=== PATIENT | male | born 1990 | race Two or more races ===

== ENCOUNTER 2024-06-26 09:29 | Inpatient (IN) | payer SELFPAY ==
[2024-06-26] VITALS (12 sets, daily range): BP systolic 127–164; BP diastolic 74–104; PULSE 74–110; RESP 14–18; TEMP 36.6–37.6; O2SAT 96–100; BMI 31.7
--- NOTE | 2024-06-26 10:43 | CT_ITS ---
FINAL REPORT CLINICAL HISTORY: soft tissue abscess of t4 area COMPARISON: None FINDINGS: CT THORACIC SPINE WITH CONTRAST TECHNIQUE: Thin section axial CT with sagittal and coronal reconstructions after the administration of IV contrast. This study was performed with techniques to keep radiation doses as low as reasonably achievable, (ALARA). Individualized dose reduction techniques using automated exposure control or adjustment of mA and/or kV according to the patient's size were employed. FINDINGS: There is no fracture. No bony destruction is seen to localize area of osteomyelitis. No gross epidural abscess is identified. There is significant focal edema in the subcutaneous tissues overlying the upper thoracic vertebra with an appearance compatible with phlegmon measuring up to 7 cm. Developing abscess is questioned. There is no loculated fluid collection or gas seen in the soft tissues. IMPRESSION: Significant inflammatory changes subcutaneous tissues overlying the upper thoracic spine with an appearance compatible with phlegmon/developing abscess. Reviewed, Interpreted and Dictated by Pina Medrano MD Transcribed by Komal Villanueva Authenticated and [facility]
--- NOTE | 2024-06-26 10:47 | CT_ITS ---
FINAL REPORT TECHNIQUE: After the administration of intravenous contrast, axial images through the chest were performed by computed tomography. This study was performed with techniques to keep radiation doses as low as reasonably achievable, (ALARA). Individualized dose reduction techniques using automated exposure control or adjustment of mA and/or kV according to the patient's size were employed. CLINICAL HISTORY: t-spine area abscess to of thoracic spine COMPARISON: None FINDINGS: The lungs are clear. There is no intrathoracic adenopathy. No pleural effusions are identified. There is mild right axillary adenopathy measuring up to 23 mm. Inflammatory changes are seen in the subcutaneous tissues overlying the upper thoracic spine. There is minimal edematous change in the right upper chest wall musculature. IMPRESSION: No acute intrathoracic abnormality. Inflammatory changes compatible phlegmon/developing abscess in the subcutaneous tissues overlying the upper thoracic spine. Reviewed, Interpreted and Dictated by Pina Medrano MD Transcribed by Komal Villanueva Authenticated and [facility]
--- NOTE | 2024-06-26 10:51 | ED_ITS ---
Discharge Plan Disposition Patient Disposition: Admitted Condition: Fair Clinical Impressions Clinical Impression: Cellulitis Discharge ED Provider: Mat Talbot General Adult HPI General Chief complaint: Skin/Abscess/Foreign Body Stated complaint: Skin abcess/infection on upper back Time Seen by Provider: 06/26/24 10:33 Mode of Arrival: Ambulatory Source of Information: Patient Limitations: Language Barrier Description of Symptoms (Recalled from ER Triage Doc. by RN): Pt. presents to ED with complaints of abscess on his upper, middle back. He states it started as a pimple or ingrown hair about 3 weeks ago and started becoming more infected and hurting worse last Wednesday, 06/20. He went to the doctor on 06/23 and they lanced and drained the abscess and started him on antibiotics. He states it has gotten much worse and is concerned about the increased infection. 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 History of Present Illness HPI narrative: 34-year-old [place] Leonean-speaking male presents to the ER for concerns of an abscess on his upper mid back. Reportedly he had a pimple or ingrown hair approximately 3 weeks ago that started getting worse. 6 days ago he started having fevers and worsening pain. 3 days ago he was taken to the doctor where they reportedly drained the abscess and started him on antibiotics however his pain in the area that is impacting continues to worsen. He is also still having fevers. Patient denies any known drug allergies, no chronic health problems that he knows of, he denies illicit drug use but admits to occasional alcohol use. No known injury to the area. Patient showed me photos of the evolution of his wound, it is definitely continuing to progress and worsen with expanding area of erythema and induration compared to even just a few days ago despite outpatient antibiotics of Bactrim and cephalexin. Related Data Home Medications ?Medication ?Instructions ?Recorded ?Confirmed cephalexin 500 mg tablet 500 mg PO BID 06/26/24 06/26/24 ibuprofen 600 mg tablet 600 mg PO Q8HP PRN Mild Pain 06/26/24 06/26/24 (Scale Score 1-4) sulfamethoxazole 800 1 tab PO BID 06/26/24 06/26/24 mg-trimethoprim 160 mg tablet (Bactrim DS) Allergies Allergy/AdvReac Type Severity Reaction Status Date / Time No Known Allergies Allergy Verified 06/26/24 14:19 PFSH PFSH Disclaimer: The information contained in this section may have been updated after the patient was seen, as this information can be updated by other users. Medical History (Updated 06/26/24 @ 14:19 by Michelle Kruse) Abscess Social History (System 06/26/24 @ 14:19 by Michelle Kruse) Smoking Status: Never smoker alcohol intake: current current occupational status: employed Travel in the last 8 weeks: Outside the [facility] Have you lived/traveled outside US in past 30 days?: No Contact w/someone who lives/traveled outside US past 30 days?: No Exposure to someone with infectious disease in past 14 days?: No Do you have a fever (greater than 100.4 F or 38 C)?: No Have you tested positive for COVID-19: No Exposed to someone with COVID-19 in past 14 days?: No Do you have a sore throat?: No Do you have a cough?: No Do you have any weakness?: No Are you experiencing any nausea/vomitting?: No Do you have any diarrhea?: No Are you experiencing any unusual bleeding?: No Do you have any muscle aches/pain?: No Do you have any abdominal pain?: No Are you experiencing loss of taste or smell?: No ROS Obtained: Yes Systems reviewed as appropriate & no additional complaints except as documented Per HPI Physical Exam General General appearance: alert and in no apparent distress Head Head exam: atraumatic and normocephalic Eye Eye exam: Present PERRL and EOMI ENT ENT exam: Present mucous membranes moist Neck Neck exam: Present normal inspection and full ROM Chest Chest inspection: Present symmetric chest wall rise Respiratory Respiratory exam: Present normal lung sounds bilaterally; Absent respiratory distress, wheezes or stridor Cardiovascular Cardiovascular exam: Present regular rate and normal rhythm Abdominal Exam Abdominal exam: Present soft; Absent distention or tenderness Extremities Exam Extremities exam: Present full ROM Back Exam Back exam: Present tenderness (Tenderness of the area surrounding the wound but no other tenderness, no vertebral tenderness, range of motion full) Neurological Exam Neurological exam: Present alert and oriented X3; Absent motor sensory deficit Psychiatric Psychiatric exam: Present normal affect and normal mood Skin Skin exam: Present warm, dry and other (Erythematous, indurated area 12 cm in diameter, the central area appears to be over the T4 region, the center of the wound is open and draining purulent material, there are multiple other smaller open areas on the wound also draining purulent material, the area is not fluctuant) Medical Decision Making Medical Records Screening: Per USPSTF and CDC recommendations, given the prevalence of disease in our region, it is our hospital?s policy to screen for HIV and viral Hepatitis for all patients aged 18 and over and those with ongoing risk factors. Severo Inquiry Pt receiving controlled substance: No Vital Signs: 06/26/24 09:57 06/26/24 10:30 06/26/24 11:00 Temperature 98.2 F Temperature Source Oral Pulse Rate 100 H 102 H Pulse Rate [Right Brachial] 110 H Respiratory Rate 16 Blood Pressure 130/85 136/95 H Blood Pressure [Right Arm] 164/104 H Blood Pressure Mean [Right Arm] 124 Blood Pressure Source Blood Pressure Source [Right Arm] Automatic Cuff Blood Pressure Position Blood Pressure Position [Right Arm] Sitting 02 Sat by Pulse Oximetry 99 98 96 Oxygen Delivery Method Room Air Room Air Room Air 06/26/24 11:29 06/26/24 12:30 06/26/24 13:30 Temperature Temperature Source Pulse Rate 96 H 80 74 Pulse Rate [Right Brachial] Respiratory Rate 18 16 Blood Pressure 127/87 132/88 141/82 H Blood Pressure [Right Arm] Blood Pressure Mean [Right Arm] Blood Pressure Source Automatic Cuff Automatic Cuff Blood Pressure Source [Right Arm] Blood Pressure Position Sitting Sitting Blood Pressure Position [Right Arm] 02 Sat by Pulse Oximetry 98 99 97 Oxygen Delivery Method Room Air Room Air Room Air 06/26/24 13:50 06/26/24 14:00 06/26/24 14:31 Temperature Temperature Source Pulse Rate 86 82 82 Pulse Rate [Right Brachial] Respiratory Rate Blood Pressure 147/91 H 155/81 H 140/84 Blood Pressure [Right Arm] Blood Pressure Mean [Right Arm] Blood Pressure Source Blood Pressure Source [Right Arm] Blood Pressure Position Blood Pressure Position [Right Arm] 02 Sat by Pulse Oximetry 100 99 99 Oxygen Delivery Method Room Air Room Air Room Air Lab Data Lab Results 06/26/24 09:56: WBC 8.0, RBC 5.04, Hgb 14.2, Hct 42.5, MCV 84.3, MCH 28.2, MCHC 33.4, RDW 12.7, Plt Count 273, MPV 10.8 H, Neut % (Auto) 75.5, Lymph % (Auto) 9.0 L, Beaver % (Auto) 11.5 H, Eos % (Auto) 2.8, Baso % (Auto) 0.4, Neut # (Auto) 6.0, Lymph # (Auto) 0.7, Beaver # (Auto) 0.9, Eos # (Auto) 0.2, Baso # (Auto) 0.0, PT 10.4, INR 0.92, Sodium 134 L, Potassium 4.4, Chloride 101, Carbon Dioxide 25, Anion Gap 12.4, BUN 15, Creatinine 0.70, Estimated Creat Clear 223, Estimated GFR 129, Est GFR ( Amer) 156, Glucose 325 H, Calcium 9.1, Total Bilirubin 0.6, AST 40, ALT 39, Alkaline Phosphatase 117, Total Protein 7.8, Albumin 3.7, G lobulin 4.1 H, Albumin/Globulin Ratio 0.9 L, HIV Ag/Ab Combo Qual Negative 06/26/24 09:56 06/26/24 09:56 Orders (Tests/Meds): ED MEDICATIONS Generic Name Dose Route Start Last Admin Trade Name Freq PRN Reason Stop Dose Admin Sodium Chloride 10 ml 06/26/24 11:48 06/26/24 11:52 Sodium Chloride 0.9% 10ml Syr (Rad Only) IV 07/26/24 11:47 10 ml NEEDED PRN Administration Maintain IV Site Discontinued Medications Generic Name Dose Route Start Last Admin Trade Name Freq PRN Reason Stop Dose Admin Lactated Ringer's 1,000 mls @ 999 mls/hr 06/26/24 10:44 06/26/24 11:08 Lactated Ringer's 1000 Ml Bag IV 06/26/24 11:44 999 mls/hr .Q1H1M ONE Administration Vancomycin HCl 2,000 mg/ 250 mls @ 125 mls/hr 06/26/24 11:00 06/26/24 11:07 Sodium Chloride IV 06/26/24 12:59 125 mls/hr ONCE ONE Administration Iopamidol 75 ml 06/26/24 11:48 06/26/24 11:52 Iopamidol-370 (76%);100ml Bottle IV 06/26/24 11:49 75 ml ONCE ONE Administration Miscellaneous 1 each 06/26/24 10:45 06/26/24 12:17 Vancomycin Consult Request NOTAPPLIC 07/26/24 10:44 1 each CON[facility]ULT [facility] Administration ORDERS Category Date Time Status CT chest w con Stat Cat Scan 06/26/24 10:[address] thoracic spine w con Stat Cat Scan 06/26/24 10:43 Taken CMP [Comprehensive Metabolic Panel] Stat Lab 06/26/24 09:56 Completed Complete Blood Count Auto Diff Stat Lab 06/26/24 09:56 Completed HIV Combo Stat Lab 06/26/24 09:56 Completed Hemoglobin A1C Stat Lab 06/26/24 09:56 Received Hep C Ab with Reflex to RNA Stat Lab 06/26/24 09:56 Received PT INR [Prothrombin Time INR] Stat Lab 06/26/24 09:56 Completed Wound Culture and Gram Stain Stat Micro 06/26/24 10:35 Received Medical Decision Narrative: In summary, this 34-year-old [place]an-speaking male presents to the emergency department today with abscess in the mid upper back. On initial evaluation patient is hemodynamically stable, though he is borderline tachycardic, normotensive, afebrile, large area of induration with purulent drainage and a central 1 cm diameter defect with purulence draining. Differential diagnosis includes but is not limited to abscess, cellulitis, I do have concerns for possible deeper space infection, electrolyte abnormality, possible sepsis, on further discussion with the patient he reports he was told he may be a diabetic but has never followed up about that which increases my concern for potential development of severe or even necrotizing infection though his slow progression of symptoms over the last 3 weeks decreases suspicion for necrotizing infection. Based on these concerns, I ordered serum labs, CT imaging. Patient received IV fluids, vancomycin for initial treatment and management of infection. Wound culture collected by me. Labs are notable for no leukocytosis however this could be falsely suppressed because patient has been on oral antibiotics for a few days. Nonactionable CMP however it is notable for hyperglycemia consistent with patient's remarks about possibly being a diabetic. A1c added to workup CT personally interpreted of the thoracic spine and chest demonstrates obvious area of infection but no apparent fluid collection, see radiology read for final interpretation. I do not appreciate findings of necrotizing infection. I discussed this case with the hospitalist, patient continues to be stable however he is obviously failing outpatient therapy. After reviewing the case and evaluating the patient, hospitalist recommended surgery consult. I discussed this case with Dr. Sanchez, after reviewing the wound, he recommended keeping the patient n.p.o. and agrees with the patient being inpatient. He states this afternoon he may decide to take the patient to the OR however he is not yet sure of this. Patient accepted for inpatient management by the hospitalist. Critical Care Critical Care Time Critical Care Time: No
[2024-06-26 10:53] LABS: Hematocrit 42.5 % (42.0-52.0); Hemoglobin 14.2 g/dL (14.1-18.0); Mean Corpuscular HGB Conc 33.4 g/dL (31.8-35.4); Mean Corpuscular Hemoglobin 28.2 pg (27.0-31.2); Mean Corpuscular Volume 84.3 fl (80-94); Mean Platelet Volume 10.8 fl (7.4-10.4); Neutrophils % 75.5 % (37.0-80.0); Platelet Count 273 K/mm3 (142-424); Red Blood Count 5.04 M/mm3 (4.60-6.20); Red Cell Distribution Width 12.7 % (11.5-17.5)
[2024-06-26 10:54] LABS: Basophils % 0.4 % (0.1-2.0); Eosinophils # 0.2 K/mm3 (0.0-0.4); Eosinophils % 2.8 % (0.1-12.0); Lymphocytes # 0.7 K/mm3 (0.7-4.5); Monocytes # 0.9 K/mm3 (0.1-1.0); Monocytes % 11.5 % (1.7-9.3)
[2024-06-26 11:05] LABS: INR 0.92 (0.9-1.1); Prothrombin Time 10.4 seconds (10.1-12.5)
[2024-06-26 11:07] LABS: Potassium 4.4 mmoL/L (3.5-5.1)
[2024-06-26] MEDS: VANCOMYCIN HCL 2,000 MG in 0.9 % SODIUM CHLORIDE 250 ML 125 MG IV (11:07)
[2024-06-26] MEDS: LACTATED RINGERS 1000ML 1,000 ML 999 ML IV (11:08)
[2024-06-26 11:10] LABS: Alanine Aminotransferase 39 U/L (12-78); Albumin Level 3.7 g/dl (3.5-5.0); Albumin/Globulin Ratio 0.9 (1.1-1.8); Alkaline Phosphatase 117 U/L (38-126); Anion Gap 12.4 mEq/L (5-15); Aspartate Amino Transferase 40 U/L (17-59); Bilirubin,Total 0.6 mg/dl (0.2-1.3); Blood Urea Nitrogen 15 mg/dl (9-20); Calcium 9.1 mg/dl (8.4-10.2); Carbon Dioxide 25 mmol/L (22.0-30.0); Chloride 101 mmol/L (98-107); Creatinine Clearance Estimated 223 mL/min (50-200); Estimated Glomerular Filt Rate 129 ml/min (>60); GFR (African American) 156 ML/MIN (>60); Globulin 4.1 g/dL (1.3-3.2); Glucose 325 mg/dl (74-100); Sodium 134 mmol/L (136-145); Total Protein,Serum 7.8 g/dl (6.3-8.2)
[2024-06-26] MEDS: IOPAMIDOL-370 (76%);100ML BOTTLE 75 ML IV (11:52)
[2024-06-26] MEDS: SODIUM CHLORIDE 0.9% 10ML SYR (RAD ONLY) 10 ML IV (11:52)
[2024-06-26] MEDS: VANCOMYCIN CONSULT REQUEST 1 EACH NOTAPPLIC ×2 (12:17→20:24)
[2024-06-26 12:36] LABS: HIV Combo NEGATIVE (Negative)
--- NOTE | 2024-06-26 13:50 | PC.NURSE ---
paged dr galicia turkey boner for er
--- NOTE | 2024-06-26 13:53 | PC.NURSE ---
adrian guajardo speaking to dr galicia
--- NOTE | 2024-06-26 14:31 | HMH.PHAINT1 ---
Pharmacy Intervention Comments: MEDICATION RECONCILIATION COMPLETED ON PATIENT USING EXTERNAL FILL HISTORY FROM PHARMACY. -YOUNG VALENCIA, ANICETOD
[2024-06-26 15:11] LABS: Hemoglobin A1C 11.3 % (4.0-6.0)
--- NOTE | 2024-06-26 16:06 | P.CONS_ITS ---
History of Present Illness *Admission Date: 06/26/24 *Reason for visit:: Abscess *History of present illness: Patient is a 34-year-old Persian-speaking male who presented to the emergency department with a 3-week history of abscess on the mid thoracic back area. Started out small possibly has a pimple or ingrown hair. It had progressed and about 6 days ago he began to develop fevers and increasing pain. He was seen by a healthcare provider who reportedly drained the area and started him on some oral antibiotics. However the area has continued to progressively worsen with increasing swelling and redness despite oral antibiotics. His workup included a CT scan which revealed inflammatory changes in the upper thoracic region compatible with phlegmon/developing abscess. ER physician had conversation with hospitalist as well as surgery. It was felt the best plan of action would be admission for initiation of IV antibiotics and serum glucose control for possible incision and drainage and debridement. Patient likely does have undiagnosed diabetes with glucose on presentation of 325 with a hemoglobin A1c of 11.3. [facility] Disclaimer: The information contained in this section may have been updated after the patient was seen, as this information can be updated by other users. Medical History (Updated 06/26/24 @ 16:45 by Emir Sanchez MD) Abscess Social History (Updated 06/26/24 @ 16:14 by Michelle Mcbride RN) Smoking Status: Never smoker alcohol intake: current current occupational status: employed Travel in the last 8 weeks: Outside the continental [place] Have you lived/traveled outside US in past 30 days?: No Contact w/someone who lives/traveled outside US past 30 days?: No Exposure to someone with infectious disease in past 14 days?: No Do you have a fever (greater than 100.4 F or 38 C)?: No Have you tested positive for COVID-19: No Exposed to someone with COVID-19 in past 14 days?: No Do you have a sore throat?: No Do you have a cough?: No Do you have any weakness?: No Are you experiencing any nausea/vomitting?: No Do you have any diarrhea?: No Are you experiencing any unusual bleeding?: No Do you have any muscle aches/pain?: No Do you have any abdominal pain?: No Are you experiencing loss of taste or smell?: No Meds Home Medications and Allergies Home Medications ?Medication ?Instructions ?Recorded ?Confirmed ?Type cephalexin 500 mg tablet 500 mg PO BID 06/26/24 06/26/24 History ibuprofen 600 mg tablet 600 mg PO Q8HP PRN Mild Pain 06/26/24 06/26/24 History (Scale Score 1-4) sulfamethoxazole 800 1 tab PO BID 06/26/24 06/26/24 History mg-trimethoprim 160 mg tablet (Bactrim DS) New Prescriptions to Start Prescriptions: Allergies Allergy/AdvReac Type Severity Reaction Status Date / Time No Known Allergies Allergy Verified 06/26/24 14:19 Exam (Inpt) Vital signs and Labs for Last 24 Hours: Temp Pulse Resp BP Pulse Ox O2 Del Method 97.8 F 84 18 133/74 99 Room Air 06/26/24 15:10 06/26/24 15:10 06/26/24 15:10 06/26/24 15:10 06/26/24 14:31 06/26/24 15:10 Laboratory Results - last 24 hr 06/26/24 09:56: WBC 8.0, RBC 5.04, Hgb 14.2, Hct 42.5, MCV 84.3, MCH 28.2, MCHC 33.4, RDW 12.7, Plt Count 273, MPV 10.8 H, Neut % (Auto) 75.5, Lymph % (Auto) 9.0 L, Mcdowell % (Auto) 11.5 H, Eos % (Auto) 2.8, Baso % (Auto) 0.4, Neut # (Auto) 6.0, Lymph # (Auto) 0.7, Mcdowell # (Auto) 0.9, Eos # (Auto) 0.2, Baso # (Auto) 0.0, PT 10.4, INR 0.92, Sodium 134 L, Potassium 4.4, Chloride 101, Carbon Dioxide 25, Anion Gap 12.4, BUN 15, Creatinine 0.70, Estimated Creat Clear 223, Estimated GFR 129, Est GFR ( Amer) 156, Glucose 325 H, Hemoglobin A1c 11.3 H, Calcium 9.1, Total Bilirubin 0.6, AST 40, ALT 39, Alkaline Phosphatase 117, Total Protein 7.8, Albumin 3.7, Globulin 4.1 H, Albumin/Globulin Ratio 0.9 L, HIV Ag/Ab Combo Qual Negative I & O for Labs for Last 24 Hours: Intake & Output 12/21/24 12/22/24 12/23/24 12/24/24 11:59 11:59 11:59 11:59 Weight 234 lb Comment:: On his mid upper thoracic back there is obvious soft tissue infection. There is an area of necrosis and somewhat ulcerated appearing tissue. Palpation around this resulted in small amount of purulent drainage. There is appreciable amount of erythema and induration. There is no significant pain. Results Labs 06/26/24 09:56 06/26/24 09:56 Labs: Laboratory Results - last 24 hr 06/26/24 09:56: WBC 8.0, RBC 5.04, Hgb 14.2, Hct 42.5, MCV 84.3, MCH 28.2, MCHC 33.4, RDW 12.7, Plt Count 273, MPV 10.8 H, Neut % (Auto) 75.5, Lymph % (Auto) 9.0 L, Mcdowell % (Auto) 11.5 H, Eos % (Auto) 2.8, Baso % (Auto) 0.4, Neut # (Auto) 6.0, Lymph # (Auto) 0.7, Mcdowell # (Auto) 0.9, Eos # (Auto) 0.2, Baso # (Auto) 0.0, PT 10.4, INR 0.92, Sodium 134 L, Potassium 4.4, Chloride 101, Carbon Dioxide 25, Anion Gap 12.4, BUN 15, Creatinine 0.70, Estimated Creat Clear 223, Estimated GFR 129, Est GFR ( Amer) 156, Glucose 325 H, Hemoglobin A1c 11.3 H, Calcium 9.1, Total Bilirubin 0.6, AST 40, ALT 39, Alkaline Phosphatase 117, Total Protein 7.8, Albumin 3.7, Globulin 4.1 H, Albumin/Globulin Ratio 0.9 L, HIV Ag/Ab Combo Qual Negative Assessment and Plan *Assessment and plan (1) Soft tissue infection: Status: Acute Category: Medical Code(s): L08.9 - Local infection of the skin and subcutaneous tissue, unspecified Plan Plan be for initiation of intravenous antibiotics and blood sugar control tonight with planned incision and drainage and debridement tomorrow.
--- NOTE | 2024-06-26 17:31 | PC.NURSE ---
arrived to floor by w/c from ED at 16:30
[2024-06-26 17:39] LABS: Thyroid Stimulating Hormone 1.92 uIU/mL (0.465-4.68)
[2024-06-26] MEDS: CEFEPIME HCL 2 GM in 0.9 % SODIUM CHLORIDE 100 ML IV (18:03)
--- NOTE | 2024-06-26 20:03 | P.HP_ITS ---
History of Present Illness *Admission Date: 06/26/24 *History of present illness: H&P adapted from surgical note. Shadi Bass is a 34-year-old Solomon Islander-speaking male who presented to the emergency department with a 3-week history of abscess on the mid thoracic back area. Started out small possibly has a pimple or ingrown hair. It had progressed and about 6 days ago he began to develop fevers and increasing pain. He was seen by a healthcare provider who reportedly drained the area and started him on some oral antibiotics. However the area has continued to progressively worsen with increasing swelling and redness despite oral antibiotics. His workup included a CT scan which revealed inflammatory changes in the upper thoracic region compatible with phlegmon/developing abscess. ER physician had conversation with hospitalist as well as surgery. It was felt the best plan of action would be admission for initiation of IV antibiotics and serum glucose control for possible incision and drainage and debridement. Patient likely does have undiagnosed diabetes with glucose on presentation of 325 with a hemoglobin A1c of 11.3. [facility] Disclaimer: The information contained in this section may have been updated after the patient was seen, as this information can be updated by other users. Medical History (Updated 06/26/24 @ 20:09 by Rufino Hannon MD) Abscess Social History (Updated 06/26/24 @ 16:14 by Michelle Mcbride RN) Smoking Status: Never smoker alcohol intake: current current occupational status: employed Travel in the last 8 weeks: Outside the continental [facility] Have you lived/traveled outside US in past 30 days?: No Contact w/someone who lives/traveled outside US past 30 days?: No Exposure to someone with infectious disease in past 14 days?: No Do you have a fever (greater than 100.4 F or 38 C)?: No Have you tested positive for COVID-19: No Exposed to someone with COVID-19 in past 14 days?: No Do you have a sore throat?: No Do you have a cough?: No Do you have any weakness?: No Are you experiencing any nausea/vomitting?: No Do you have any diarrhea?: No Are you experiencing any unusual bleeding?: No Do you have any muscle aches/pain?: No Do you have any abdominal pain?: No Are you experiencing loss of taste or smell?: No Other Medical History Have you received the Flu Vaccine for this season: Yes Have you received the Pneumonia Vaccine: No Meds Home Medications and Allergies Home Medications ?Medication ?Instructions ?Recorded ?Confirmed ?Type cephalexin 500 mg tablet 500 mg PO BID 06/26/24 06/26/24 History ibuprofen 600 mg tablet 600 mg PO Q8HP PRN Mild Pain 06/26/24 06/26/24 History (Scale Score 1-4) sulfamethoxazole 800 1 tab PO BID 06/26/24 06/26/24 History mg-trimethoprim 160 mg tablet (Bactrim DS) New Prescriptions to Start Prescriptions: Allergies Allergy/AdvReac Type Severity Reaction Status Date / Time No Known Allergies Allergy Verified 06/26/24 14:19 Exam Data for Last 24 hours Vital signs and Labs for Last 24 Hours: Temp Pulse Resp BP Pulse Ox O2 Del Method 99.7 F H 103 H 17 156/85 H 99 Room Air 06/26/24 19:43 06/26/24 19:43 06/26/24 19:43 06/26/24 19:43 06/26/24 19:43 06/26/24 19:43 Laboratory Results - last 24 hr 06/26/24 09:53: TSH 1.92 06/26/24 09:56: WBC 8.0, RBC 5.04, Hgb 14.2, Hct 42.5, MCV 84.3, MCH 28.2, MCHC 33.4, RDW 12.7, Plt Count 273, MPV 10.8 H, Neut % (Auto) 75.5, Lymph % (Auto) 9.0 L, [place] % (Auto) 11.5 H, Eos % (Auto) 2.8, Baso % (Auto) 0.4, Neut # (Auto) 6.0, Lymph # (Auto) 0.7, [place] # (Auto) 0.9, Eos # (Auto) 0.2, Baso # (Auto) 0.0, PT 10.4, INR 0.92, Sodium 134 L, Potassium 4.4, Chloride 101, Carbon Dioxide 25, Anion Gap 12.4, BUN 15, Creatinine 0.70, Estimated Creat Clear 223, Estimated GFR 129, Est GFR ( Amer) 156, Glucose 325 H, Hemoglobin A1c 11.3 H, Calcium 9.1, Total Bilirubin 0.6, AST 40, ALT 39, Alkaline Phosphatase 117, Total Protein 7.8, Albumin 3.7, Globulin 4.1 H, Albumin/Globulin Ratio 0.9 L, HIV Ag/Ab Combo Qual Negative I & O for Last 24 hours: Intake & Output 06/23/24 06/24/24 06/25/24 06/26/24 23:59 23:59 23:59 23:59 Intake Total 540 / 540 Output Total 0 / 0 Balance 540 / 540 Weight 106.141 kg Constitutional Constitutional: no acute distress *Routine HEENT Exam Head: Present normocephalic Eye: Present EOMI and PERRL ENT: Present mucous membranes moist *Routine Neck Exam Neck: Present supple; Absent lymphadenopathy *Routine Respiratory Exam Respiratory: Present CTA bilaterally *Routine Cardiovascular Exam Cardiovascular: Present RRR *Routine Abdominal Exam Abdominal: Present soft and normoactive bowel sounds; Absent tenderness *Routine Rectal Exam Rectal:: deferred *Routine Genitalia Exam Genitalia:: deferred *Routine Extremities Exam Extremities: Absent cyanosis, clubbing or edema Routine Back/Spine/Pelvis Exam Comments: About 5 x 5 circular, indurated area of erythema, swelling with central drainage of purulence. *Routine Skin Exam Skin: Present warm; Absent rash *Routine Neurological Exam Neurological: Present alert and oriented X3 Assessment and Plan *Assessment and plan (1) Abscess: Status: Acute Category: Medical Code(s): L02.91 - Cutaneous abscess, unspecified (2) Diabetes mellitus: Status: Acute Qualifiers: Diabetes mellitus complication status: with unspecified complications Diabetes mellitus intermediate school teacher insulin use: unspecified detention insulin use status Diabetes mellitus type: type 2 Qualified Code(s): E11.8 - Type 2 diabetes mellitus with unspecified complications Category: Medical Code(s): E11.9 - Type 2 diabetes mellitus without complications Plan Shadi Bass is a [place] Islander-speaking 34-year-old male with a medical history of newly diagnosed diabetes who presents with worsening abscess on his upper back. #Upper back abscess ? WBC normal at 8.0, but is slightly tachycardic to 103 with temperature 99.7 ?F. ? General Surgery consulted, will plan for I&D tomorrow. N.p.o. at midnight. ? Continue vancomycin, cefepime. ? Follow-up surgical cultures after I&D tomorrow. #New diagnosis of diabetes ? Hemoglobin A1c 11.3 percent. Blood sugars in 300s. ? Apparently had been treated in [place] prior with medications but no longer taking these medications. ? Lantus 10 units nightly. LDSSI, ACHS glucose checks. ? Plan to discharge with metformin and insulin, cost might be a factor for medications. Full code Lovenox 40 mg
[2024-06-26] MEDS: humaLOG 100 UNITS/ML 10ML VIAL (SSI) SUBCUT (20:40)
[2024-06-26] MEDS: VANCOMYCIN/WATER FOR INJ (PEG) 1.75 GM/350 ML PIGGYBACK IV (20:40)
[2024-06-26] MEDS: INSULIN GLARGINE 100 UNITS/ML 10ML VIAL 10 UNIT SUBCUT (20:41)
[2024-06-26] MEDS: ACETAMINOPHEN 325MG TAB 650 MG PO (22:52)
[2024-06-27] VITALS (18 sets, daily range): BP systolic 123–155; BP diastolic 61–101; PULSE 66–93; RESP 14–19; TEMP 36.6–37; O2SAT 95–100; BMI 31.4; BMI 31.3
[2024-06-27] MEDS: VANCOMYCIN/WATER FOR INJ (PEG) 1.75 GM/350 ML PIGGYBACK IV (04:10)
[2024-06-27 05:08] LABS: HCV Ab Non Reactive (Non Reactive)
[2024-06-27] MEDS: CEFEPIME HCL 2 GM in 0.9 % SODIUM CHLORIDE 100 ML IV ×2 (06:18→16:10)
--- NOTE | 2024-06-27 07:00 | PC.NURSE ---
Equipment Scheduler device used yesterday and today for communication.
--- NOTE | 2024-06-27 08:03 | EXP.PHA.CONS ---
Pharmacy Consult Date: 06/27/24 Time: 08:04 Referring provider: DR BINGHAM Reason for Consult:: VANCOMYCIN DOSING CONSULT Allergies Allergy/AdvReac Type Severity Reaction Status Date / Time No Known Allergies Allergy Verified 06/26/24 14:19 Home Medications ?Medication ?Instructions ?Recorded ?Confirmed ?Type cephalexin 500 mg tablet 500 mg PO BID 06/26/24 06/26/24 History ibuprofen 600 mg tablet 600 mg PO Q8HP PRN Mild Pain 06/26/24 06/26/24 History (Scale Score 1-4) sulfamethoxazole 800 1 tab PO BID 06/26/24 06/26/24 History mg-trimethoprim 160 mg tablet (Bactrim DS) New Prescriptions to Start Prescriptions: Height: 1.83 m Weight: 105.233 kg Laboratory Results:: Laboratory Results - last 24 hr 06/26/24 09:53: TSH 1.92 06/26/24 09:56: WBC 8.0, RBC 5.04, Hgb 14.2, Hct 42.5, MCV 84.3, MCH 28.2, MCHC 33.4, RDW 12.7, Plt Count 273, MPV 10.8 H, Neut % (Auto) 75.5, Lymph % (Auto) 9.0 L, [place] % (Auto) 11.5 H, Eos % (Auto) 2.8, Baso % (Auto) 0.4, Neut # (Auto) 6.0, Lymph # (Auto) 0.7, [place] # (Auto) 0.9, Eos # (Auto) 0.2, Baso # (Auto) 0.0, PT 10.4, INR 0.92, Sodium 134 L, Potassium 4.4, Chloride 101, Carbon Dioxide 25, Anion Gap 12.4, BUN 15, Creatinine 0.70, Estimated Creat Clear 223, Estimated GFR 129, Est GFR ( Amer) 156, Glucose 325 H, Hemoglobin A1c 11.3 H, Calcium 9.1, Total Bilirubin 0.6, AST 40, ALT 39, Alkaline Phosphatase 117, Total Protein 7.8, Albumin 3.7, Globulin 4.1 H, Albumin/Globulin Ratio 0.9 L, Hepatitis C Antibody Non reactive, HIV Ag/Ab Combo Qual Negative Medical History: Medical History (Updated 06/26/24 @ 20:09 by Rufino Hannon MD) Abscess Assessment and Plan Assessment and plan all Dx Assessment and Plan for all problems:: Pharmacokinetic dosing service Objective: Age: 34 yo Serum creatinine: 0.7 mg/dL Height: 72.0 Inches Weight (kg): 105.233 Diagnosis: CELLULITIS Assessment: IBW (kg): 77.60 Dosing wt(kg): 105.233 Estimated Creatinine clearance (ml/min): 130 Clearance limited to 130 ml/min to reduce risk of overdosing. CRCL method: Cockcroft and Gault using adjusted body weight Drug selected: Vancomycin Loading dose (mg): 2000 MG Vd (liters): 84.2 (factor used: 0.8 L/kg) Rey (hr-1): 0.112 Half life (hrs): 6.19 CLvanco=?? 9.430 L/hr Recommended dose: 1750 mg Interval: 8 hrs Infusion time (hrs): 2.0 Predicted peak (mcg/mL): 31.5 Predicted trough (mcg/mL): 16.09 Total body weight is being used for vancomycin dosing. Recommendations: Give Vancomycin 1750 mg q 8 hrs with an expected Cpeak of 31.5 mcg/ml and an expected Ctrough of 16.09 mcg/ml AUC 0-24 /SELENA Data: SELENA 0.5 mcg/mL:?? AUC/SELENA:? 1113.5 SELENA 1.0 mcg/mL:?? AUC/SELENA:? 556.7 --------- SELENA 1.5 mcg/mL:?? AUC/SELENA:? 371.2 SELENA 2.0 mcg/mL:?? AUC/SELENA:? 278.4 Thank you for the consult
[2024-06-27] MEDS: CLINDAMYCIN PHOSPHATE/D5W 900 MG/50 ML PIGGYBACK 50 MG (08:41)
--- NOTE | 2024-06-27 08:43 | EXP.ANES.CKL ---
[facility] Disclaimer: The information contained in this section may have been updated after the patient was seen, as this information can be updated by other users. Medical History (Updated 06/26/24 @ 20:09 by Rufino Hannon MD) Abscess Social History (Updated 06/26/24 @ 16:14 by Michelle Mcbride RN) Smoking Status: Never smoker alcohol intake: current substance use type: denies use current occupational status: employed Travel in the last 8 weeks: Outside the [facility] Anesthesia Checklist Patient Identification Patient Identification: Verbal (Name & ) Structural Data Admitted From: Home Planned Operative Procedure/s: i/d back abcess NPO Status Verified Time NPO: 00:00 Airway Assessment Mallampati Score:: Class II C-Spine Mobility Assessed: Yes TMJ Mobility Assessed: Yes Dentition: Good Dentition Neurological Assessment Level of Consciousness: Awake, Alert and Appropriate Anesthesia Plan Anesthesia Risk discussed: Yes Anesthesia Plan: Verified ASA Class: II Anesthesia Type: General Preoperative Comments Pre-Operative Comments: icelandic speaking only, used ronnie to speak w pt and inform him of surgery
--- NOTE | 2024-06-27 09:27 | EXP.OP.NOTE ---
Date of procedure: 06/27/24 Pre-op Diagnosis:: Soft tissue infection of the mid thoracic back Post-op Diagnosis:: Same Procedure performed:: Incision and drainage complex abscess with debridement of skin, subcutaneous tissues, limited muscle Surgeon:: Emir Sanchez MD SPEECH PATHOLOGY ASSISTANT:: Hal Baca Anesthesia: LMA Estimated blood loss (mL): 30 Operative findings:: Consistent with furunculosis with focal necrotizing cellulitis and subcutaneous abscess Operative note:: Patient was taken the operating room. He was positioned in a lateral decubitus position. Anesthesia was induced via LMA. The area was prepped and draped in the standard surgical fashion. He had central necrotic tissues draining pus. Limited incision was made around this with electrocautery. There was necrotic purulent underlying tissues. Culture was sent. There was evidence of focal necrotizing cellulitis with necrosis of subcutaneous tissues and tracking purulence throughout the subcutaneous tissues. Serial sequential widening debridement was carried out until relatively normal-appearing tissues were encountered and necrotic infected tissues were debrided. Dissection was carried down to and included some superficial fascia and limited muscle. All debridement was carried out using electrocautery. Probing was carried out to evaluate for any tracking purulence and that there was none appreciable at the completion of the procedure. Once tissue was debrided to relatively nonnecrotic noninfected tissue the overall size of the wound measured 8.5 cm in diameter and 3.5 cm in depth. There is no undermining or tunneling. Hemostasis was achieved with electrocautery. The wound was irrigated with nearly 3 L of pulsatile saline irrigation using the InterPulse device. Once again hemostasis was achieved with electrocautery. Wound was packed with a saline moistened Kerlix and covered with clean dry sterile dressing. Condition: stable Disposition: PACU Complications:: None immediately apparent
--- NOTE | 2024-06-27 09:32 | P.PNANES_ITS ---
[facility] Anesthesia Record Part I Anesthesia Record I Intake, IV Amount: 800 Hydration: Adequate Estimated blood loss (mL): 75 Urine output (mL): 0 Blood Pressure: 148/71 SaO2: 98 Pulse Rate: 85 Airway Patency: Patent Respiratory Rate: 14 Temperature: 98 F Patient is:: Awake and Stable Stable to PACU at:: 09:25
[2024-06-27 09:43] LABS: POC Glucose,Bedside 230 (70-110)
[2024-06-27] MEDS: ONDANSETRON 4MG/2ML VIAL 4 MG IV (10:16)
[2024-06-27] MEDS: INSULIN GLARGINE 100 UNITS/ML 3ML FLEXPEN 10 UNIT SUBCUT (10:17)
[2024-06-27] MEDS: HYDROCODONE/APAP 5/325 MG TABLET 2 TAB PO (10:17)
[2024-06-27 11:28] LABS: Albumin Level 3.3 g/dl (3.5-5.0); Chloride 98 mmol/L (98-107); Sodium 129 mmol/L (136-145)
[2024-06-27 11:29] LABS: Potassium 4.3 mmoL/L (3.5-5.1)
[2024-06-27 11:31] LABS: Alanine Aminotransferase 37 U/L (12-78); Albumin/Globulin Ratio 0.9 (1.1-1.8); Alkaline Phosphatase 94 U/L (38-126); Anion Gap 8.3 mEq/L (5-15); Aspartate Amino Transferase 35 U/L (17-59); Bilirubin,Total 0.3 mg/dl (0.2-1.3); Blood Urea Nitrogen 18 mg/dl (9-20); Carbon Dioxide 27 mmol/L (22.0-30.0); Creatinine Clearance Estimated 221 mL/min (50-200); Estimated Glomerular Filt Rate 129 ml/min (>60); GFR (African American) 156 ML/MIN (>60); Globulin 3.5 g/dL (1.3-3.2); Total Protein,Serum 6.8 g/dl (6.3-8.2)
[2024-06-27 11:32] LABS: Calcium 8.4 mg/dl (8.4-10.2); Chol/HDL Ratio 11.7 (1-3.5); Cholesterol 176 mg/dl (140-200); Glucose 315 mg/dl (74-100); HDL Cholesterol 15 mg/dl (40-60); Magnesium 2.1 mg/dl (1.6-2.3); Triglycerides 236 mg/dl (30-150); VLDL Cholesterol 47 mg/dL (0-40)
[2024-06-27 11:43] LABS: Direct LDL Cholesterol 91.77 mg/dL (100-129)
[2024-06-27] MEDS: humaLOG 100 UNITS/ML 10ML VIAL (SSI) SUBCUT ×3 (11:51→21:58)
[2024-06-27 11:53] LABS: Vancomycin,Trough 10.7 ug/mL (5.0-10.0)
[2024-06-27 12:01] LABS: Hematocrit 36.9 % (42.0-52.0); Hemoglobin 12.2 g/dL (14.1-18.0); Mean Corpuscular HGB Conc 33.1 g/dL (31.8-35.4); Mean Corpuscular Hemoglobin 27.9 pg (27.0-31.2); Mean Corpuscular Volume 84.4 fl (80-94); Mean Platelet Volume 10.3 fl (7.4-10.4); Platelet Count 299 K/mm3 (142-424); Red Blood Count 4.37 M/mm3 (4.60-6.20); Red Cell Distribution Width 12.6 % (11.5-17.5); White Blood Count 6.5 K/mm3 (4.8-10.8)
[2024-06-27 12:02] LABS: Basophils % 0.5 % (0.1-2.0); Eosinophils # 0.3 K/mm3 (0.0-0.4); Eosinophils % 4.1 % (0.1-12.0); Lymphocytes # 1.3 K/mm3 (0.7-4.5); Lymphocytes % 20.2 % (10-50); Monocytes # 0.8 K/mm3 (0.1-1.0); Monocytes % 12.4 % (1.7-9.3); Neutrophils % 61.7 % (37.0-80.0)
--- NOTE | 2024-06-27 12:16 | P.CONPHA_ITS ---
Pharmacy Consult Date: 06/27/24 Time: 12:16 Referring provider: DR BINGHAM Reason for Consult:: VANCOMYCIN TROUGH LEVEL OBTAINED Allergies Allergy/AdvReac Type Severity Reaction Status Date / Time No Known Allergies Allergy Verified 06/26/24 14:19 Home Medications ?Medication ?Instructions ?Recorded ?Confirmed ?Type cephalexin 500 mg tablet 500 mg PO BID 06/26/24 06/26/24 History ibuprofen 600 mg tablet 600 mg PO Q8HP PRN Mild Pain 06/26/24 06/26/24 History (Scale Score 1-4) sulfamethoxazole 800 1 tab PO BID 06/26/24 06/26/24 History mg-trimethoprim 160 mg tablet (Bactrim DS) New Prescriptions to Start Prescriptions: Height: 1.83 m Weight: 105.233 kg Laboratory Results:: Laboratory Results - last 24 hr 06/26/24 09:53: TSH 1.92 06/26/24 09:56: Hemoglobin A1c 11.3 H, Hepatitis C Antibody Non reactive, HIV Ag/Ab Combo Qual Negative 06/27/24 09:35: POC Glucose 230 H 06/27/24 11:05: WBC 6.5, RBC 4.37 L, Hgb 12.2 L, Hct 36.9 L, MCV 84.4, MCH 27.9, MCHC 33.1, RDW 12.6, Plt Count 299, MPV 10.3, Neut % (Auto) 61.7, Lymph % (Auto) 20.2, [place] % (Auto) 12.4 H, Eos % (Auto) 4.1, Baso % (Auto) 0.5, Neut # (Auto) 4.0, Lymph # (Auto) 1.3, [place] # (Auto) 0.8, Eos # (Auto) 0.3, Baso # (Auto) 0.0, Sodium 129 L, Potassium 4.3, Chloride 98, Carbon Dioxide 27, Anion Gap 8.3, BUN 18, Creatinine 0.70, Estimated Creat Clear 221, Estimated GFR 129, Est GFR ( Amer) 156, Glucose 315 H, Calcium 8.4, Magnesium 2.1, Total Bilirubin 0.3, AST 35, ALT 37, Alkaline Phosphatase 94, Total Protein 6.8, Albumin 3.3 L D , Globulin 3.5 H, Albumin/Globulin Ratio 0.9 L, Triglycerides 236 H, Cholesterol 176, LDL Cholesterol Direct 91.77 L, VLDL Cholesterol 47 H, HDL Cholesterol 15 L , Cholesterol/HDL Ratio 11.7 H, Vancomycin Trough 10.7 H Medical History: Medical History (Updated 06/26/24 @ 20:09 by Rufino Hannon MD) Abscess Assessment and Plan Assessment and plan all Dx Assessment and Plan for all problems:: VANCOMYCIN TROUGH LEVEL: 10.7 MCG/ML (06/27/24 11:00) RECOMMEND CONTINUING CURRENT DOSE OF VANCOMYCIN (1750 MG Q8H)
--- NOTE | 2024-06-27 12:24 | DIET.NUTRFU ---
Patient was in restroom at time of visit. Patient has uncontrolled diabetes, provided multiple diabetic handouts in khmer for education.
[2024-06-27] MEDS: VANCOMYCIN HCL 1,750 MG in 0.9 % SODIUM CHLORIDE 250 ML 125 MG IV ×2 (12:51→21:44)
[2024-06-27 13:31] LABS: POC Glucose,Bedside 261 (70-110)
[2024-06-27 13:31] LABS: POC Glucose,Bedside 237 (70-110)
[2024-06-27 16:19] LABS: POC Glucose,Bedside 260 (70-110)
--- NOTE | 2024-06-27 16:34 | EXP.ACUTE.PN ---
Subjective *Date: 06/27/24 *Time: 18:01 Interval history: Interview performed using color buffer via iPad today. -Patient has no significant complaints. Stable on room air. Afebrile. No nausea or vomiting. Status post I&D of lesion on his back. Discussed diabetes briefly, asked if he had any questions. He said no. Asked if he understood what it means to have diabetes, he stated yes. Explained risk this presents for persistent/recurrent infections. Patient states understanding. Discussed the need for wound care, patient plans on going home to [place] after discharge to be with family for assistance with wound management. Counseled on need for close follow-up with a doctor in [place] to address his diabetes. Patient states understanding. Medical Exam Vital signs and Labs for Last 24 Hours: Vital Signs Temp Pulse Pulse Resp BP BP Pulse Ox 06/27/24 16:06 06/27/24 16:00 98.6 F 72 19 123/74 98 06/27/24 15:00 06/27/24 14:10 98.5 F 85 18 130/81 98 06/27/24 13:10 98.2 F 80 17 132/80 98 06/27/24 12:26 06/27/24 12:10 98.2 F 81 17 133/74 97 06/27/24 11:40 98.2 F 82 17 134/86 97 06/27/24 11:10 98.2 F 84 17 135/76 97 06/27/24 11:00 06/27/24 10:55 98.2 F 93 H 17 152/92 H 06/27/24 10:35 98.2 F 86 17 134/77 98 06/27/24 10:20 98.2 F 75 17 136/87 97 06/27/24 10:05 98.2 F 77 17 140/86 97 06/27/24 09:55 77 17 145/82 H 97 06/27/24 09:45 75 17 152/96 H 95 06/27/24 09:35 79 18 145/95 H 96 06/27/24 09:33 98 F 85 14 148/71 H 06/27/24 09:25 97.8 F 85 18 154/101 H 95 06/27/24 08:00 06/27/24 06:37 06/27/24 05:00 06/27/24 04:00 98.1 F 66 17 123/61 100 06/27/24 03:00 06/27/24 01:00 06/26/24 23:00 06/26/24 21:00 06/26/24 20:00 06/26/24 19:43 99.7 F H 103 H 17 156/85 H 99 06/26/24 17:17 06/26/24 16:45 06/26/24 16:44 O2 Del Method 06/27/24 16:06 Room Air 06/27/24 16:00 Room Air 06/27/24 15:00 Room Air 06/27/24 14:10 Room Air 06/27/24 13:10 Room Air 06/27/24 12:26 Room Air 06/27/24 12:10 Room Air 06/27/24 11:40 Room Air 06/27/24 11:10 Room Air 06/27/24 11:00 Room Air 06/27/24 10:55 Room Air 06/27/24 10:35 Room Air 06/27/24 10:20 Room Air 06/27/24 10:05 Room Air 06/27/24 09:55 Room Air 06/27/24 09:45 Room Air 06/27/24 09:35 Room Air 06/27/24 09:33 06/27/24 09:25 Room Air 06/27/24 08:00 Room Air 06/27/24 06:37 Room Air 06/27/24 05:00 Room Air 06/27/24 04:00 Room Air 06/27/24 03:00 Room Air 06/27/24 01:00 Room Air 06/26/24 23:00 Room Air 06/26/24 21:00 Room Air 06/26/24 20:00 Room Air 06/26/24 19:43 Room Air 06/26/24 17:17 Room Air 06/26/24 16:45 Room Air 06/26/24 16:44 Room Air Intake and Output 06/27/24 06/27/24 06/27/24 07:59 15:59 23:59 Intake Total 930 / 2340 1410 / 2340 Output Total 0 / 150 0 / 150 150 / 150 Balance 930 / 2190 1410 / 2190 -150 / 2190 Intake: Intake, Oral Amount 480 / 840 360 / 840 Intake, Total IV Amount 450 / 1500 1050 / 1500 Cefepime HCl 2 gm In 0.9 % 100 / 100 Sodium Chloride 100 ml @ 200 mls/hr IV Q12H [facility] Rx#:[id number] Vancomycin/Water For Inj (Peg) 350 / 600 250 / 600 1.75 gm In 350 ml @ 175 mls/hr IV Q8H [facility] Rx#:[id number] Output: Output, Urine Amount 0 / 150 0 / 150 150 / 150 Other: Number of Unmeasured Voids 1 1 0 Weight 105.233 kg 105 kg Patient Weight 06/27/24 23:59 Weight 105 kg Laboratory Results - last 24 hr 06/26/24 09:53: TSH 1.92 06/26/24 09:56: Hepatitis C Antibody Non reactive 06/26/24 20:18: POC Glucose 261 H 06/27/24 06:55: POC Glucose 237 H 06/27/24 09:35: POC Glucose 230 H 06/27/24 11:05: WBC 6.5, RBC 4.37 L, Hgb 12.2 L, Hct 36.9 L, MCV 84.4, MCH 27.9, MCHC 33.1, RDW 12.6, Plt Count 299, MPV 10.3, Neut % (Auto) 61.7, Lymph % (Auto) 20.2, [place] % (Auto) 12.4 H, Eos % (Auto) 4.1, Baso % (Auto) 0.5, Neut # (Auto) 4.0, Lymph # (Auto) 1.3, [place] # (Auto) 0.8, Eos # (Auto) 0.3, Baso # (Auto) 0.0, Sodium 129 L, Potassium 4.3, Chloride 98, Carbon Dioxide 27, Anion Gap 8.3, BUN 18, Creatinine 0.70, Estimated Creat Clear 221, Estimated GFR 129, Est GFR ( Amer) 156, Glucose 315 H, Calcium 8.4, Magnesium 2.1, Total Bilirubin 0.3, AST 35, ALT 37, Alkaline Phosphatase 94, Total Protein 6.8, Albumin 3.3 L D, Globulin 3.5 H, Albumin/Globulin Ratio 0.9 L, Triglycerides 236 H, Cholesterol 176, LDL Cholesterol Direct 91.77 L, VLDL Cholesterol 47 H, HDL Cholesterol 15 L, Cholesterol/HDL Ratio 11.7 H, Vancomycin Trough 10.7 H 06/27/24 16:12: POC Glucose 260 H I & O for Labs for Last 24 Hours: Intake & Output 06/24/24 06/25/24 06/26/24 06/27/24 23:59 23:59 23:59 23:59 Intake Total 540 / 1470 2340 / 2340 Output Total 0 / 0 150 / 150 Balance 540 / 1470 2190 / 2190 Weight 106.141 kg 105 kg Microbiology Reports for the Last 24 Hours: Microbiology 06/27/24 08:39 Back - Abscess Gram Stain - Final 06/26/24 10:35 Back Gram Stain - Final 06/26/24 10:35 Back Wound Culture - Preliminary Gram Positive Cocci Constitutional: Present no acute distress and cooperative Head: Present atraumatic and normocephalic ENT: Present normal exam Respiratory: Present normal respiratory effort; Absent rhonchi, wheezes or crackles Cardiac: Present Reg Rate and Rhythm GI: Present soft and normal bowel sounds; Absent distention or tenderness Extremities: Present normal inspection and full ROM Skin: Present intact; Absent erythema Comment:: Lesion with dressing in place, minimal bleeding Neuro: Present Grossly Intact, alert, awake, oriented x 3 and moves all extremities Assessment and Plan *Assessment and plan (1) Abscess: Status: Acute Category: Medical Code(s): L02.91 - Cutaneous abscess, unspecified (2) Diabetes mellitus: Status: Acute Qualifiers: Diabetes mellitus complication status: with unspecified complications Diabetes mellitus group home insulin use: unspecified long term acute care registered nurse insulin use status Diabetes mellitus type: type 2 Qualified Code(s): E11.8 - Type 2 diabetes mellitus with unspecified complications Category: Medical Code(s): E11.9 - Type 2 diabetes mellitus without complications Plan Shadi Bass is a Maori-speaking 34-year-old male with a medical history of untreated diabetes who presented with worsening abscess on his upper back. Taken for I&D today. Discussed case with surgery, recommends either daily dressing changes or wound VAC. Will continue IV antibiotics. Addressing diabetes overnight. Dissipate discharge home tomorrow on simplified regimen for glucose control and oral antibiotics. Problems addressed as follows: #Upper back abscess ? White count remains normal at 6.5, hemoglobin 12.2. Severely necrotic wound that was debrided by surgery. Clean margins obtained. -Discussed case today with surgery, recommend oral antibiotics at discharge and daily dressing changes or wound VAC. In discussion with patient, he plans to travel back home to [place] after discharge. Recommend daily dressing changes. Wound VAC contraindicated given social situation. -Continue vancomycin and cefepime. Plan to transition back to Bactrim double strength to complete 10 days of therapy total now that source control is achieved. #New diagnosis of diabetes ? Hemoglobin A1c 11.3 on presentation. Review of chart shows A1c of 12 back in 2018. Has not been on any therapy. Initiated on basal bolus regimen. Will transition to 7030 combo twice daily. -Treat with 15 units 75/25 combo insulin tonight. Monitor for improvement control. Anticipate discharge on twice daily dosing for ease of administration. Counseled on need to follow-up closely with a physician in [place] upon his arrival. Patient states understanding. -Diabetic diet counseling performed with nutrition today using color buffer. - Plan to discharge with metformin and insulin, cost might be a factor for medications. Full code Lovenox 40 mg
[2024-06-27] MEDS: humaLOG MIX 75/25 3ML FLEXPEN 15 UNIT SUBCUT (18:00)
[2024-06-27 22:07] LABS: POC Glucose,Bedside 188 (70-110)
--- NOTE | 2024-06-28 03:40 | PC.NURSE ---
Patient is alert and oriented x4. Patient is primarily Urdu-speaking but does appear to understand some Irish. Ground Service Equipment Mechanic available. Patient was observed to have eyes closed, respirations even and unlabored on room air, and no apparent distress throughout the night. Patient was visited by friends and his employer yesterday evening. He has not had any subjective complaints, nor verbal/nonverbal cues of pain. Initial wound dressing remains dry and intact to the back of his neck, surgeon to do first dressing change in the morning. Antibiotics given for this shift. Patient has not asked for any pain medication thus far. Auscultation of his heart, lungs, and bowels were within normal findings. He has been tolerating ambulation well independently this shift. At this time, the patient is resting in bed. No acute changes noted thus far. Call light within reach.
[2024-06-28 04:00] VITALS: BP 105/62; PULSE 75; RESP 16; TEMP 37; O2SAT 99; BMI 31.2
--- NOTE | 2024-06-28 04:45 | PC.NURSE ---
Patient complaining of mild pain in his neck and requested for Tylenol at this time.
[2024-06-28] MEDS: CEFEPIME HCL 2 GM in 0.9 % SODIUM CHLORIDE 100 ML IV (04:49)
[2024-06-28] MEDS: ACETAMINOPHEN 325MG TAB 650 MG PO (04:50)
[2024-06-28] MEDS: VANCOMYCIN HCL 1,750 MG in 0.9 % SODIUM CHLORIDE 250 ML 125 MG IV (05:25)
[2024-06-28 05:47] LABS: POC Glucose,Bedside 188 (70-110)
[2024-06-28] MEDS: humaLOG 100 UNITS/ML 10ML VIAL (SSI) SUBCUT ×2 (06:15→11:29)
[2024-06-28 07:23] LABS: Albumin Level 3.3 g/dl (3.5-5.0); Chloride 102 mmol/L (98-107); Potassium 4.2 mmoL/L (3.5-5.1); Sodium 130 mmol/L (136-145)
[2024-06-28 07:26] LABS: Alanine Aminotransferase 43 U/L (12-78); Alkaline Phosphatase 84 U/L (38-126); Anion Gap 5.2 mEq/L (5-15); Aspartate Amino Transferase 39 U/L (17-59); Bilirubin,Total 0.3 mg/dl (0.2-1.3); Blood Urea Nitrogen 18 mg/dl (9-20); Carbon Dioxide 27 mmol/L (22.0-30.0); Creatinine Clearance Estimated 220 mL/min (50-200); Estimated Glomerular Filt Rate 129 ml/min (>60); GFR (African American) 156 ML/MIN (>60); Globulin 3.4 g/dL (1.3-3.2); Total Protein,Serum 6.7 g/dl (6.3-8.2)
[2024-06-28 07:27] LABS: Calcium 8.5 mg/dl (8.4-10.2); Glucose 209 mg/dl (74-100); Magnesium 2.2 mg/dl (1.6-2.3)
[2024-06-28 07:57] LABS: Hematocrit 37.3 % (42.0-52.0); Hemoglobin 12.3 g/dL (14.1-18.0); Red Blood Count 4.39 M/mm3 (4.60-6.20); White Blood Count 5.9 K/mm3 (4.8-10.8)
[2024-06-28 07:58] LABS: Basophils % 0.7 % (0.1-2.0); Eosinophils # 0.3 K/mm3 (0.0-0.4); Eosinophils % 4.4 % (0.1-12.0); Lymphocytes # 1.6 K/mm3 (0.7-4.5); Lymphocytes % 26.3 % (10-50); Mean Platelet Volume 10.1 fl (7.4-10.4); Monocytes # 0.6 K/mm3 (0.1-1.0); Monocytes % 10.3 % (1.7-9.3); Neutrophils # 3.4 K/mm3 (1.8-7.8); Platelet Count 305 K/mm3 (142-424); Red Cell Distribution Width 12.4 % (11.5-17.5)
[2024-06-28 08:00] VITALS: BP 140/79; PULSE 78; RESP 16; TEMP 36.6; O2SAT 99
[2024-06-28] MEDS: humaLOG MIX 75/25 3ML FLEXPEN 15 UNIT SUBCUT (08:05)
[2024-06-28 08:19] LABS: POC Glucose,Bedside 267 (70-110)
--- NOTE | 2024-06-28 08:54 | P.PN_ITS ---
Subjective Narrative: Patient is without complaints. Exam Data for Last 24 hours Vital signs and Labs for Last 24 Hours: Temp Pulse Resp BP Pulse Ox O2 Del Method 97.9 F 78 16 140/79 99 Room Air 06/28/24 08:00 06/28/24 08:00 06/28/24 08:00 06/28/24 08:00 06/28/24 08:00 06/28/24 08:00 Laboratory Results - last 24 hr 06/26/24 20:18: POC Glucose 261 H 06/27/24 06:55: POC Glucose 237 H 06/27/24 09:35: POC Glucose 230 H 06/27/24 11:05: WBC 6.5, RBC 4.37 L, Hgb 12.2 L, Hct 36.9 L, MCV 84.4, MCH 27.9, MCHC 33.1, RDW 12.6, Plt Count 299, MPV 10.3, Neut % (Auto) 61.7, Lymph % (Auto) 20.2, Lamb % (Auto) 12.4 H, Eos % (Auto) 4.1, Baso % (Auto) 0.5, Neut # (Auto) 4.0, Lymph # (Auto) 1.3, Lamb # (Auto) 0.8, Eos # (Auto) 0.3, Baso # (Auto) 0.0, Sodium 129 L, Potassium 4.3, Chloride 98, Carbon Dioxide 27, Anion Gap 8.3, BUN 18, Creatinine 0.70, Estimated Creat Clear 221, Estimated GFR 129, Est GFR ( Amer) 156, Glucose 315 H, Calcium 8.4, Magnesium 2.1, Total Bilirubin 0.3, AST 35, ALT 37, Alkaline Phosphatase 94, Total Protein 6.8, Albumin 3.3 L D , Globulin 3.5 H, Albumin/Globulin Ratio 0.9 L, Triglycerides 236 H, Cholesterol 176, LDL Cholesterol Direct 91.77 L, VLDL Cholesterol 47 H, HDL Cholesterol 15 L , Cholesterol/HDL Ratio 11.7 H, Vancomycin Trough 10.7 H 06/27/24 16:12: POC Glucose 260 H 06/27/24 21:46: POC Glucose 188 H 06/28/24 05:32: POC Glucose 188 H 06/28/24 06:55: WBC 5.9, RBC 4.39 L, Hgb 12.3 L, Hct 37.3 L, MCV 85.0, MCH 28.0, MCHC 33.0, RDW 12.4, Plt Count 305, MPV 10.1, Neut % (Auto) 57.0, Lymph % (Auto) 26.3, Lamb % (Auto) 10.3 H, Eos % (Auto) 4.4, Baso % (Auto) 0.7, Neut # (Auto) 3.4, Lymph # (Auto) 1.6, Lamb # (Auto) 0.6, Eos # (Auto) 0.3, Baso # (Auto) 0.0, Sodium 130 L, Potassium 4.2, Chloride 102, Carbon Dioxide 27, Anion Gap 5.2, BUN 18, Creatinine 0.70, Estimated Creat Clear 220, Estimated GFR 129, Est GFR ( Amer) 156, Glucose 209 H D, Calcium 8.5, Magnesium 2.2, Total Bilirubin 0.3, AST 39, ALT 43, Alkaline Phosphatase 84, Total Protein 6.7, Albumin 3.3 L, Globulin 3.4 H, Albumin/Globulin Ratio 1.0 L 06/28/24 08:04: POC Glucose 267 H I & O for Last 24 hours: Intake & Output 06/25/24 06/26/24 06/27/24 06/28/24 11:59 11:59 11:59 11:59 Intake Total 2270 / 2270 1310 / 1310 Output Total 0 / 0 250 / 250 Balance 2270 / 2270 1060 / 1060 Weight 234 lb 232 lb 231 lb Microbiology Reports for the Last 24 Hours: Microbiology 06/26/24 10:35 Back Gram Stain - Final 06/26/24 10:35 Back Wound Culture - Preliminary Gram Positive Cocci 06/27/24 08:39 Back - Abscess Gram Stain - Final 06/27/24 08:39 Back - Abscess Abscess Culture - Preliminary Gram Positive Cocci *Routine Skin Exam Comments: Wound is clean. No evidence of any purulence or necrosis. Progress Note: A&P Assessment and plan (1) Abscess: Status: Acute Assessment and plan: Should be able to discharge with outpatient wound care and antibiotics. Recommend once daily wet-to-dry (saline moistened Kerlix with dry sterile gauze covering). (2) Diabetes mellitus: Status: Acute
[2024-06-28] MEDS: humaLOG MIX 75/25 3ML FLEXPEN 5 UNIT SUBCUT (10:00)
--- NOTE | 2024-06-28 10:59 | P.DS_ITS ---
General Admission date:: 06/26/24 Discharge date: 06/28/24 HPI HPI HPI: H&P adapted from surgical note. Shadi Bass is a 34-year-old Tajik-speaking male who presented to the emergency department with a 3-week history of abscess on the mid thoracic back area. Started out small possibly has a pimple or ingrown hair. It had progressed and about 6 days ago he began to develop fevers and increasing pain. He was seen by a healthcare provider who reportedly drained the area and started him on some oral antibiotics. However the area has continued to progressively worsen with increasing swelling and redness despite oral antibiotics. His workup included a CT scan which revealed inflammatory changes in the upper thoracic region compatible with phlegmon/developing abscess. ER physician had conversation with hospitalist as well as surgery. It was felt the best plan of action would be admission for initiation of IV antibiotics and serum glucose control for possible incision and drainage and debridement. Patient likely does have undiagnosed diabetes with glucose on presentation of 325 with a hemoglobin A1c of 11.3. Hospital Course Hospital Course Hospital Course: Shadi Bass is a Tajik-speaking 34-year-old male with a medical history of untreated diabetes who presented with worsening abscess on his upper back. Taken for I&D 06/27. Tolerated procedure well. Improved source control. White count remained normal. Transition to oral antibiotics and improve glucose control. Stable to discharge home. Follow-up as an outpatient daily for dressing changes until travels back to [place]. #Upper back abscess ? Necrotic abscessed furuncle on upper back. Taken for I&D by surgery on 06/27. White count remain normal. Source control achieved. On IV antibiotics with vancomycin and cefepime during admission. Will transition back to Bactrim double strength to complete antibiotics as an outpatient. Overall showing improvement. Discussed wound VAC versus daily dressing changes. Patient plans to travel back to [place] in the next couple days to week. Will defer on wound VAC and continue with daily dressing changes. Order given for outpatient dressing management. Patient instructed to come back to infusion/outpatient daily for dressing changes. States understanding. #New diagnosis of diabetes ? Hemoglobin A1c 11.3 on presentation. Review of chart shows A1c of 12 back in 2018. Has not been on any therapy. Initiated on basal bolus regimen. Transitioned to 75/25 combo. Will continue 20 units twice daily. Tolerating regimen well. Glucose improved, maintaining 150-250 on current regimen. Counseled on need to see physician when he gets back to [place] for further treatment. Exam Data for Last 24 hours Vital signs and Labs for Last 24 Hours: Temp Pulse Resp BP Pulse Ox O2 Del Method 97.9 F 78 16 140/79 99 Room Air 06/28/24 08:00 06/28/24 08:00 06/28/24 08:00 06/28/24 08:00 06/28/24 08:00 06/28/24 09:00 Laboratory Results - last 24 hr 06/26/24 20:18: POC Glucose 261 H 06/27/24 06:55: POC Glucose 237 H 06/27/24 11:05: WBC 6.5, RBC 4.37 L, Hgb 12.2 L, Hct 36.9 L, MCV 84.4, MCH 27.9, MCHC 33.1, RDW 12.6, Plt Count 299, MPV 10.3, Neut % (Auto) 61.7, Lymph % (Auto) 20.2, Howell % (Auto) 12.4 H, Eos % (Auto) 4.1, Baso % (Auto) 0.5, Neut # (Auto) 4.0, Lymph # (Auto) 1.3, Howell # (Auto) 0.8, Eos # (Auto) 0.3, Baso # (Auto) 0.0, Sodium 129 L, Potassium 4.3, Chloride 98, Carbon Dioxide 27, Anion Gap 8.3, BUN 18, Creatinine 0.70, Estimated Creat Clear 221, Estimated GFR 129, Est GFR ( Amer) 156, Glucose 315 H, Calcium 8.4, Magnesium 2.1, Total Bilirubin 0.3, AST 35, ALT 37, Alkaline Phosphatase 94, Total Protein 6.8, Albumin 3.3 L D , Globulin 3.5 H, Albumin/Globulin Ratio 0.9 L, Triglycerides 236 H, Cholesterol 176, LDL Cholesterol Direct 91.77 L, VLDL Cholesterol 47 H, HDL Cholesterol 15 L , Cholesterol/HDL Ratio 11.7 H, Vancomycin Trough 10.7 H 06/27/24 16:12: POC Glucose 260 H 06/27/24 21:46: POC Glucose 188 H 06/28/24 05:32: POC Glucose 188 H 06/28/24 06:55: WBC 5.9, RBC 4.39 L, Hgb 12.3 L, Hct 37.3 L, MCV 85.0, MCH 28.0, MCHC 33.0, RDW 12.4, Plt Count 305, MPV 10.1, Neut % (Auto) 57.0, Lymph % (Auto) 26.3, Howell % (Auto) 10.3 H, Eos % (Auto) 4.4, Baso % (Auto) 0.7, Neut # (Auto) 3.4, Lymph # (Auto) 1.6, Howell # (Auto) 0.6, Eos # (Auto) 0.3, Baso # (Auto) 0.0, Sodium 130 L, Potassium 4.2, Chloride 102, Carbon Dioxide 27, Anion Gap 5.2, BUN 18, Creatinine 0.70, Estimated Creat Clear 220, Estimated GFR 129, Est GFR ( Amer) 156, Glucose 209 H D, Calcium 8.5, Magnesium 2.2, Total Bilirubin 0.3, AST 39, ALT 43, Alkaline Phosphatase 84, Total Protein 6.7, Albumin 3.3 L, Globulin 3.4 H, Albumin/Globulin Ratio 1.0 L 06/28/24 08:04: POC Glucose 267 H I & O for Last 24 hours: Intake & Output 06/25/24 06/26/24 06/27/24 06/28/24 23:59 23:59 23:59 23:59 Intake Total 540 / 1470 2790 / 3040 250 / 250 Output Total 0 / 0 250 / 250 Balance 540 / 1470 2540 / 2790 250 / 250 Weight 106.141 kg 105 kg 104.78 kg Microbiology Reports for the Last 24 Hours: Microbiology 06/26/24 10:35 Back Gram Stain - Final 06/26/24 10:35 Back Wound Culture - Preliminary Gram Positive Cocci 06/27/24 08:39 Back - Abscess Gram Stain - Final 06/27/24 08:39 Back - Abscess Abscess Culture - Preliminary Gram Positive Cocci Constitutional Constitutional: no acute distress *Routine HEENT Exam Head: Present normocephalic Eye: Present EOMI and PERRL ENT: Present mucous membranes moist *Routine Neck Exam Neck: Present supple; Absent lymphadenopathy *Routine Respiratory Exam Respiratory: Present CTA bilaterally; Absent respiratory distress, rhonchi, stridor, wheezes or crackles *Routine Cardiovascular Exam Cardiovascular: Present RRR *Routine Abdominal Exam Abdominal: Present soft and normoactive bowel sounds; Absent tenderness *Routine Rectal Exam Patient deferred: visual exam *Routine Exam Patient deferred: penile exam *Routine Extremities Exam Extremities: Absent cyanosis, clubbing or edema Routine Back/Spine/Pelvis Exam Back image: 2 1. Lesion upper back status post I&D. Clean bandage in place. *Routine Skin Exam Skin: Present warm and wounds; Absent rash *Routine Neurological Exam Neurological: Present alert, oriented X3 and moving all extremities; Absent altered mental status Results Data Completed and Pending Labs on day of discharge: Labs from last 24 hours 06/28/24 06/28/24 06/28/24 08:04 06:55 05:32 WBC 5.9 RBC 4.39 L Hgb 12.3 L Hct 37.3 L MCV 85.0 MCH 28.0 MCHC 33.0 RDW 12.4 Plt Count 305 MPV 10.1 Neut % (Auto) 57.0 Lymph % (Auto) 26.3 Howell % (Auto) 10.3 H Eos % (Auto) 4.4 Baso % (Auto) 0.7 Neut # (Auto) 3.4 Lymph # (Auto) 1.6 Howell # (Auto) 0.6 Eos # (Auto) 0.3 Baso # (Auto) 0.0 Sodium 130 L Potassium 4.2 Chloride 102 Carbon Dioxide 27 Anion Gap 5.2 BUN 18 Creatinine 0.70 Estimated Creat Clear 220 Estimated GFR 129 Est GFR ( Amer) 156 Glucose 209 H D POC Glucose 267 H 188 H Calcium 8.5 Magnesium 2.2 Total Bilirubin 0.3 AST 39 ALT 43 Alkaline Phosphatase 84 Total Protein 6.7 Albumin 3.3 L Globulin 3.4 H Albumin/Globulin Ratio 1.0 L Triglycerides Cholesterol LDL Cholesterol Direct VLDL Cholesterol HDL Cholesterol Cholesterol/HDL Ratio Vancomycin Trough 06/27/24 06/27/24 06/27/24 21:46 16:12 11:05 WBC 6.5 RBC 4.37 L Hgb 12.2 L Hct 36.9 L MCV 84.4 MCH 27.9 MCHC 33.1 RDW 12.6 Plt Count 299 MPV 10.3 Neut % (Auto) 61.7 Lymph % (Auto) 20.2 Howell % (Auto) 12.4 H Eos % (Auto) 4.1 Baso % (Auto) 0.5 Neut # (Auto) 4.0 Lymph # (Auto) 1.3 Howell # (Auto) 0.8 Eos # (Auto) 0.3 Baso # (Auto) 0.0 Sodium 129 L Potassium 4.3 Chloride 98 Carbon Dioxide 27 Anion Gap 8.3 BUN 18 Creatinine 0.70 Estimated Creat Clear 221 Estimated GFR 129 Est GFR ( Amer) 156 Glucose 315 H POC Glucose 188 H 260 H Calcium 8.4 Magnesium 2.1 Total Bilirubin 0.3 AST 35 ALT 37 Alkaline Phosphatase 94 Total Protein 6.8 Albumin 3.3 L D Globulin 3.5 H Albumin/Globulin Ratio 0.9 L Triglycerides 236 H Cholesterol 176 LDL Cholesterol Direct 91.77 L VLDL Cholesterol 47 H HDL Cholesterol 15 L Cholesterol/HDL Ratio 11.7 H Vancomycin Trough 10.7 H 06/27/24 06/26/24 06:55 20:18 WBC RBC Hgb Hct MCV MCH MCHC RDW Plt Count MPV Neut % (Auto) Lymph % (Auto) Howell % (Auto) Eos % (Auto) Baso % (Auto) Neut # (Auto) Lymph # (Auto) Howell # (Auto) Eos # (Auto) Baso # (Auto) Sodium Potassium Chloride Carbon Dioxide Anion Gap BUN Creatinine Estimated Creat Clear Estimated GFR Est GFR ( Amer) Glucose POC Glucose 237 H 261 H Calcium Magnesium Total Bilirubin AST ALT Alkaline Phosphatase Total Protein Albumin Globulin Albumin/Globulin Ratio Triglycerides Cholesterol LDL Cholesterol Direct VLDL Cholesterol HDL Cholesterol Cholesterol/HDL Ratio Vancomycin Trough Preliminary micro results at discharge 06/26/24 10:35 Wound Culture - Preliminary Back Gram Positive Cocci 06/27/24 08:39 Abscess Culture - Preliminary Back - Abscess Gram Positive Cocci DS: Diagnosis Discharge Diagnosis (1) Abscess: Status: Acute Code(s): L02.91 - Cutaneous abscess, unspecified (2) Diabetes mellitus: Status: Acute Code(s): E11.9 - Type 2 diabetes mellitus without complications Qualifiers: Diabetes mellitus complication status: with unspecified complications D iabetes mellitus correction insulin use: unspecified superintendent terminal insulin use status Diabetes mellitus type: type 2 Qualified Code(s): E11.8 - Type 2 diabetes mellitus with unspecified complications Meds Home Medications and Allergies Home Medications ?Medication ?Instructions ?Recorded ?Confirmed ?Type ibuprofen 600 mg tablet 600 mg PO Q8HP PRN Mild Pain 06/26/24 06/26/24 History (Scale Score 1-4) insulin lispro protamine-lispro 24 unit (0.24 mL) SQ BIDWMEAL 30 06/28/24 Rx 100 unit/mL (75-25) subcutaneous days #14.4 mL pen (Humalog Mix 75-25 KwikPen) pen needle, diabetic 31 gauge x #100 ea 06/28/24 Rx 5/16 sulfamethoxazole 800 1 tab PO BID 5 days #10 tabs 06/28/24 Rx mg-trimethoprim 160 mg tablet (Bactrim DS) New Prescriptions to Start Prescriptions: insulin lispro protamin-lispro [Humalog Mix 75-25 KwikPen] Howard John pen needle, diabetic Howard John sulfamethoxazole-trimethoprim [Bactrim DS] Howard John Allergies Allergy/AdvReac Type Severity Reaction Status Date / Time No Known Allergies Allergy Verified 06/26/24 14:19 Discharge Plan Disposition Patient Disposition: Home, Self-Care Condition: Good Discharge Order Discharge Orders: Discharge Order (Routine); Ordered 06/28/24 Ordered By: Howard John Follow up Plan Follow up with: Emir Sanchez MD [Staff Physician] - Enter time for follow up (1 week Patient to call office for hospital follow up. ) Prescriptions/Medication Reconciliation: New insulin lispro protamin-lispro [Humalog Mix 75-25 KwikPen] 100 unit/mL (75-25) Insulin Pen 24 unit SQ BIDWMEAL 30 Days Qty: 14.4 0RF (DME) pen needle, diabetic 31 gauge x 5/16 needle See Rx Instructions .Route Qty: 100 0RF Rx Instructions: As directed Continued ibuprofen 600 mg Tablet 600 mg PO Q8HP PRN (Reason: Mild Pain (Scale Score 1-4)) sulfamethoxazole-trimethoprim [Bactrim DS] 800-160 mg Tablet 1 tab PO BID 5 Days Qty: 10 0RF Discontinued cephalexin 500 mg Tablet 500 mg PO BID Problem Reconciliation Problems Reviewed?: Yes Patient Discharge Instructions ACTIVITY: Continue current activity DIET: continue same diet Patient Instructions: DI for Skin Abscess Print Language: Tajik Providers Primary Care Provider: Provider,Referral Admit Provider: Rufino Hannon Attending Provider: Rufino Hannon
[2024-06-28 11:29] LABS: POC Glucose,Bedside 235 (70-110)
--- NOTE | 2024-06-28 15:00 | PC.NURSE ---
patient being d/c today. dressing changed per MD orders. wound shows no signs of infection. dressing is clean dry and intact. environmental program manager used to explain discharge instructions, patient verbalized understanding.
--- NOTE | 2024-06-30 07:19 | EXP.ANES.II ---
[facility] Anesthesia Record Part II Anesthesia Record Part II Discharge Time: 09:55 Destination: Medical Surgical Department PACU nurse assessment reviewed?: Yes Patient Condition:: Good Anesthesia Complications:: None Swallowing reflex intact?: Yes Airway Patency: Patent Cyanosis?: No Blood Pressure: 145/82 SaO2: 97 Respiratory Rate: 17 Pulse Rate: 77 Temperature: 98.2 F Mental Status: Alert & Oriented Pain level:: 0 Nausea and/or vomitting:: None Intake, IV Amount: 0 Hydration: Adequate
[2024-06-30 07:20] VITALS: BP 145/82; PULSE 77; RESP 17; TEMP 36.8; O2SAT 97
[2024-06-30 14:34] LABS: Antipancreatic islet cell antb Negative (Neg:<1:1)
[2024-07-06 15:08] LABS: Insulin Autoantibodies (IAA) <5.0 uU/mL (.)
== END 2024-06-28 14:54 | disposition home or self-care (01) | DRG 572 ==
LOC: ER 14:07 → 2ND 14:45
PROVIDERS: Internal Medicine Adolescent Medicine; Surgery; Admitting Provider Student in an Organized Health Care Education/Training Program; Emergency Provider Emergency Medicine; Visit Provider Student in an Organized Health Care Education/Training Program
PROC: 0JB70ZZ Excision of Back Subcutaneous Tissue and Fascia, Open Approach (ICD-10-PCS; principal; 2024-06-27 08:30)
DX: L02.212 Cutaneous abscess of back [any part, except buttock and flank] (principal); E11.9 Type 2 diabetes mellitus without complications; Z79.4 Long term (current) use of insulin; B95.62 Methicillin resistant Staphylococcus aureus infection as the cause of diseases classified elsewhere
CPT/HCPCS: 71260; 72129; 80053; 80061; 80202; 82962; 83036; 83735; 84443; 85025; 85610; 86337; 86341; 86803; 87070; 87077; 87186; 87205; 87389; 99252; 99285; J0736; J2250; J2405; J3010; J3370; J3372; J7120; Q9967

== ENCOUNTER 2024-06-29 10:13 | Outpatient (CLI) | payer SELFPAY ==
--- NOTE | 2024-06-29 13:16 | PC.NURSE ---
1020-Removed dressing, including packing from mid thoracic back. Cleaned wound with NS and dried using gauze. Wound measures 8.5cm in diameter. Packed with part of dry Kerlex. Top border of wound has lip that had to be packed as well. Covered wound with dry 4x4, followed with ABD pad, and covered with Tegaderm.
== END 2024-06-29 10:35 | disposition home or self-care (01) ==
LOC: INF 10:14
PROVIDERS: Visit Provider Surgery
DX: L02.212 Cutaneous abscess of back [any part, except buttock and flank] (principal)
CPT/HCPCS: G0463

== ENCOUNTER 2024-06-30 11:06 | Outpatient (CLI) | payer SELFPAY | END 2024-06-30 11:30 | disposition home or self-care (01) | LOC: INF 11:07 | PROVIDERS: Visit Provider Surgery | DX: Z48.00 Encounter for change or removal of nonsurgical wound dressing (principal) | CPT/HCPCS: G0463 ==

== ENCOUNTER 2024-07-01 09:16 | Outpatient (CLI) | payer SELFPAY | END 2024-07-01 23:59 | disposition home or self-care (01) | LOC: INF 09:16 | PROVIDERS: Visit Provider Surgery | DX: Z48.00 Encounter for change or removal of nonsurgical wound dressing (principal) | CPT/HCPCS: G0463 ==

== ENCOUNTER 2024-07-02 09:07 | Outpatient (CLI) | payer SELFPAY | END 2024-07-02 09:30 | disposition home or self-care (01) | LOC: INF 09:07 | PROVIDERS: Visit Provider Surgery | DX: Z60.0 Problems of adjustment to life-cycle transitions (principal) | CPT/HCPCS: G0463 ==

== ENCOUNTER 2024-07-03 08:39 | Outpatient (CLI) | payer SELFPAY | END 2024-07-03 09:20 | disposition home or self-care (01) | LOC: INF 08:40 | PROVIDERS: Visit Provider Surgery | DX: Z48.00 Encounter for change or removal of nonsurgical wound dressing (principal) | CPT/HCPCS: G0463 ==

== ENCOUNTER 2024-07-04 08:49 | Outpatient (CLI) | payer SELFPAY | END 2024-07-04 09:03 | disposition home or self-care (01) | LOC: INF 08:50 | PROVIDERS: Visit Provider Internal Medicine Adolescent Medicine | DX: L02.212 Cutaneous abscess of back [any part, except buttock and flank] (principal) | CPT/HCPCS: G0463 ==

== ENCOUNTER 2024-07-05 09:32 | Outpatient (CLI) | payer SELFPAY | END 2024-07-05 09:55 | disposition home or self-care (01) | LOC: INF 09:33 | PROVIDERS: Visit Provider Internal Medicine Adolescent Medicine | DX: L02.212 Cutaneous abscess of back [any part, except buttock and flank] (principal) | CPT/HCPCS: G0463 ==

== ENCOUNTER 2024-07-06 08:59 | Outpatient (CLI) | payer SELFPAY | END 2024-07-06 09:30 | disposition home or self-care (01) | LOC: INF 08:59 | PROVIDERS: Visit Provider Internal Medicine Adolescent Medicine | DX: Z48.00 Encounter for change or removal of nonsurgical wound dressing (principal) | CPT/HCPCS: G0463 ==

== ENCOUNTER 2024-07-07 09:01 | Outpatient (CLI) | payer SELFPAY | END 2024-07-07 09:10 | disposition home or self-care (01) | LOC: INF 09:01 | PROVIDERS: Visit Provider Surgery | DX: Z48.00 Encounter for change or removal of nonsurgical wound dressing (principal) | CPT/HCPCS: G0463 ==

== ENCOUNTER 2024-07-08 09:11 | Outpatient (CLI) | payer SELFPAY | END 2024-07-08 09:55 | disposition home or self-care (01) | LOC: INF 09:11 | PROVIDERS: Visit Provider Internal Medicine Adolescent Medicine | DX: Z48.00 Encounter for change or removal of nonsurgical wound dressing (principal) ==

== ENCOUNTER 2024-07-09 08:55 | Outpatient (CLI) | payer SELFPAY | END 2024-07-09 09:24 | disposition home or self-care (01) | LOC: INF 08:55 | PROVIDERS: Visit Provider Internal Medicine Adolescent Medicine | DX: Z48.00 Encounter for change or removal of nonsurgical wound dressing (principal) | CPT/HCPCS: G0463 ==

== ENCOUNTER 2024-07-12 09:12 | Outpatient (CLI) | payer SELFPAY | END 2024-07-12 09:31 | disposition home or self-care (01) | LOC: INF 09:12 | PROVIDERS: Visit Provider Internal Medicine Adolescent Medicine | DX: L02.91 Cutaneous abscess, unspecified (principal) | CPT/HCPCS: G0463 ==

== ENCOUNTER 2024-07-13 09:12 | Outpatient (CLI) | payer SELFPAY | END 2024-07-13 09:20 | disposition home or self-care (01) | LOC: INF 09:12 | PROVIDERS: Visit Provider Internal Medicine Adolescent Medicine | DX: L03.311 Cellulitis of abdominal wall (principal) | CPT/HCPCS: G0463 ==